=== PATIENT | male | born 1960 | race African-American/Black ===

== ENCOUNTER 2016-10-09 02:08 | Emergency (ER) | payer OTHER ==
[~2016-10-09] VITALS: Ht 172.7 cm; Wt 115.7 kg
[~2016-10-09 02:08] MED LIST: IBUPROFEN600 MG PO; NKM
[2016-10-09 02:31] VITALS: BP 127/76
[2016-10-09 02:56] LABS: APPEARANCE,URINE CLEAR; KETONES,URINE 1+ (NEGATIVE); LEUKOCYTE ESTERASE ,URINE 3+ (NEGATIVE); NITRITE,URINE NEGATIVE (NEGATIVE); PH,URINE 6 (4.5-8.0); PROTEIN,URINE 1+ (NEGATIVE); UROBILINOGEN,URINE 1 MG/DL (0.0-1.0)
[2016-10-09 02:58] LABS: BASOPHILS % (AUTO) 0.7 % (0.0-2.0); EOSINOPHILS % (AUTO) 2.6 % (0.0-3.0); LYMPHOCYTES % (AUTO) 20.5 % (20.0-45.0); MEAN CORPUSCULAR HEMOGLOBIN 32.4 PG (27.0-31.0); MEAN CORPUSCULAR VOLUME 105 FL (80-99); MEAN PLATELET VOLUME 7.7 FL (6.5-10.1); MONOCYTES % (AUTO) 6.1 % (1.0-10.0); NEUTROPHILS % (AUTO) 70.1 % (45.0-75.0); PLATELET COUNT 210 K/UL (150-450); RED BLOOD COUNT 4.19 M/UL (4.70-6.10); RED CELL DISTRIBUTION WIDTH 14.3 % (11.6-14.8); WHITE BLOOD COUNT 8.5 K/UL (4.8-10.8)
[2016-10-09 03:00] VITALS: BP 126/67
[2016-10-09 03:11] LABS: TROPONIN I < 0.30 ng/mL (<=0.30)
[2016-10-09 03:14] LABS: ALANINE AMINOTRANSFERASE 30 U/L (3-41); ALBUMIN/GLOBULIN RATIO 1.4 (1.0-2.7); ANION GAP 16 (5-15); ASPARTATE AMINO TRANSFERASE 18 U/L (5-40); CALCIUM 9.1 mg/dL (8.6-10.2); CARBON DIOXIDE 24 mEQ/L (20-30); CHLORIDE 100 mEQ/L (98-107); CREATININE 0.9 mg/dL (0.7-1.2); GLOMERULAR FILTRATION RATE > 60 mL/min (>60); HEMOLYSIS 3; LIPASE 23 U/L (< 60); POTASSIUM 3.9 mEQ/L (3.4-4.9); SODIUM 140 mEQ/L (135-145); TOTAL PROTEIN 7.2 g/dL (6.6-8.7)
[2016-10-09 03:24] LABS: CKMB < 1.5 ng/mL (< 6.7)
[2016-10-09 04:00] VITALS: BP 129/68
[2016-10-09 04:23] LABS: BACTERIA,URINE FEW /HPF; SQUAMOUS EPITHELIAL CELL,UR FEW /LPF (NONE/OCC); WBC,URINE 15-20 /HPF (0 - 0)
[2016-10-09 04:24] LABS: MUCUS,URINE MANY /LPF (NONE/OCC)
[2016-10-09] MEDS ORDERED: Norco 10mg/325mg tab ORAL ONE (04:30)
[2016-10-09] MEDS ORDERED: Cephalexin 500mg cap ORAL ONE (04:30)
[2016-10-09 04:38] VITALS: BP 126/67
[2016-10-09] MEDS ORDERED: KEFLEX500 MG ORAL (04:48)
[2016-10-09] MEDS ORDERED: COLACE100 MG ORAL (04:48)
[2016-10-09] MEDS ORDERED: PEPCID20 MG ORAL (04:48)
--- NOTE | 2016-10-09 09:13 | Diagnostic Imaging Report ---
Indication: Abdominal pain Technique: Continuous helical transaxial imaging of the abdomen and pelvis was obtained from the lung bases to the pubic symphysis. No intravenous contrast was administered. Coronal 2-D reformats were also obtained. Total Dose length Product (DLP): [address] Dose Index Volume (CTDIvol): 20 mGy Comparison: 11/15/12 Findings: Some breathing motion artifact limits evaluation as does absence of IV and oral contrast. There is no free fluid, free air or evidence of bowel obstruction. Some mural calcification noted within the distal aorta and iliac arteries. Appendix is identified and appears normal. Bilateral inguinal hernias containing fat noted. Right renal low attenuation mass is present. These are possibly cysts but incompletely assessed on the current study. Gallbladder is grossly unremarkable. There is narrowing of intervertebral discs and accompanying endplate osteophyte formation. Hypertrophied facet joints also demonstrated. Impression: No acute findings appreciated. Bilateral inguinal hernias containing fat Normal appendix Atherosclerotic vascular disease Spondylosis Probable right renal cyst. This should be confirmed by ultrasound or contrast examination. The CT scanner at [facility] is accredited by the [employer] and the scans are performed using protocols designed to limit radiation exposure to as low as reasonably achievable to attain images of sufficient resolution adequate for diagnostic evaluation.
--- NOTE | 2016-10-09 11:33 | Diagnostic Imaging Report ---
Indication: Chest Pain Comparison: None A single view chest radiograph was obtained. Findings: The heart is borderline enlarged. Lungs are clear. Bones are unremarkable. Impression: No acute disease
--- NOTE | 2016-10-10 09:36 | Emergency Room Report ---
History of Present Illness General Chief Complaint: Abdominal Pain Source: Patient, Family Member Present Illness HPI Patient just with mom for complaints of abdominal pain Patient is also mute And there is some limitation with history [place] the patient has been complaining of pain to the epigastric area She was also concerned that he appointment to his chest at one point No reports of vomiting or diarrhea Patient was apparently constipated and she has given him a laxative Patient is unable to rate his pain level Does not grimace Mom denies any obvious fevers Reports that they were told he possibly had gallstones but has not had any surgery Allergies: Coded Allergies: No Known Allergies (Unverified , 11/15/12) Patient History Limited by: medical condition Past Medical History: see triage record Pertinent Family History: none Reviewed Nursing Documentation: PMH: Agreed, PSxH: Agreed Review of Systems All Other Systems: negative except mentioned in HPI Physical Exam Vital Signs Date Time Temp Pulse Resp B/P Pulse Ox O2 Delivery O2 Flow Rate FiO2 10/09/16 02:23 98.4 106 18 127/76 95 Room Air Sp02 EP Interpretation: reviewed, normal General Appearance: well appearing, no apparent distress Head: normocephalic, atraumatic Eyes: bilateral eye EOMI, bilateral eye PERRL ENT: normal pharynx, TMs + canals normal, uvula midline Neck: full range of motion, supple, no meningismus, no bony tend Respiratory: lungs clear, normal breath sounds, no rhonchi, no respiratory distress, no retraction, no accessory muscle use Cardiovascular #1: normal peripheral pulses, regular rate, rhythm, no edema, no gallop, no JVD, no murmur Gastrointestinal: normal bowel sounds, non tender - Patient points epigastric area when asked regarding discomfort, soft, no mass, no organomegaly, non- distended, no guarding, no hernia, no pulsatile mass, no rebound Genitourinary: no CVA tenderness Musculoskeletal: normal inspection Neurologic: oriented x3, responsive, motor strength/tone normal, sensory intact Psychiatric: mood/affect normal Skin: normal color, no rash, warm/dry, palpation normal Lymphatic: normal inspection, no adenopathy Medical Decision Making Diagnostic Impression: Primary Impression: Abdominal pain Additional Impressions: chest pain UTI (urinary tract infection) ER Course Given the patient's presentation and some limited history A fairly extensive workup was initiated EKG was normal patient also had cardiac enzymes and CAT scan obtained CT was normal for any acute pathology patient has done well throughout her stay remains hemodynamically stable Does show evidence of possible UTI And will have further outpatient initial conservative trial Please note that the patient's well hernias visualized on CT, do not appear clinically, and the patient has otherwise no signs of any strangulation or herniation , Labs Test 10/09/16 02:33 10/09/16 02:40 Urine Color Yellow Urine Appearance Clear Urine pH 6 (4.5-8.0) Urine Specific [place] 1.020 (1.005-1.035) Urine Protein 1+ (NEGATIVE) Urine Glucose (UA) Negative (NEGATIVE) Urine Ketones 1+ (NEGATIVE) Urine Occult Blood 4+ (NEGATIVE) Urine Nitrite Negative (NEGATIVE) Urine Bilirubin Negative (NEGATIVE) Urine Urobilinogen 1 MG/DL (0.0-1.0) Urine Leukocyte Esterase 3+ (NEGATIVE) Urine RBC 10-15 /HPF (0 - 0) Urine WBC 15-20 /HPF (0 - 0) Urine Squamous Epithelial Cells Few /LPF (NONE/OCC) Urine Bacteria Few /HPF (NONE) Urine Mucus Many /LPF (NONE/OCC) White Blood Count 8.5 K/UL (4.8-10.8) Red Blood Count 4.19 M/UL (4.70-6.10) Hemoglobin 13.6 G/DL (14.2-18.0) Hematocrit 43.8 % (42.0-52.0) Mean Corpuscular Volume 105 FL (80-99) Mean Corpuscular Hemoglobin 32.4 PG (27.0-31.0) Mean Corpuscular Hemoglobin Concent 31.0 G/DL (32.0-36.0) Red Cell Distribution Width 14.3 % (11.6-14.8) Platelet Count 210 K/UL (150-450) Mean Platelet Volume 7.7 FL (6.5-10.1) Neutrophils (%) (Auto) 70.1 % (45.0-75.0) Lymphocytes (%) (Auto) 20.5 % (20.0-45.0) Monocytes (%) (Auto) 6.1 % (1.0-10.0) Eosinophils (%) (Auto) 2.6 % (0.0-3.0) Basophils (%) (Auto) 0.7 % (0.0-2.0) Sodium Level 140 mEQ/L (135-145) Potassium Level 3.9 mEQ/L (3.4-4.9) Chloride Level 100 mEQ/L (98-107) Carbon Dioxide Level 24 mEQ/L (20-30) Anion Gap 16 (5-15) Blood Urea Nitrogen 21 mg/dL (7-23) Creatinine 0.9 mg/dL (0.7-1.2) Estimat Glomerular Filtration Rate > 60 mL/min (>60) Glucose Level 106 mg/dL (74-106) Calcium Level 9.1 mg/dL (8.6-10.2) Total Bilirubin < 0.2 mg/dL (0.0-1.2) Aspartate Amino Transf (AST/SGOT) 18 U/L (5-40) Alanine Aminotransferase (ALT/SGPT) 30 U/L (3-41) Alkaline Phosphatase 102 U/L (40-129) Total Creatine Kinase 114 U/L (38-174) Creatine Kinase MB < 1.5 ng/mL (< 6.7) Troponin I < 0.30 ng/mL (<=0.30) Total Protein 7.2 g/dL (6.6-8.7) Albumin 4.2 g/dL (3.5-5.2) Globulin 3.0 g/dL Albumin/Globulin Ratio 1.4 (1.0-2.7) Lipase 23 U/L (< 60) EKG Diagnostic Results Rate: normal Rhythm: NSR ST Segments: no acute changes Rhythm Strip Diag. Results EP Interpretation: yes Rate: 77 Rhythm: NSR, no PVC's, no ectopy Chest X-Ray Diagnostic Results EP Interpretation: Yes Findings: no consolidation, no effusion, no pneumothorax Number of Views: 1 CT/MRI/US Diagnostic Results CT/MRI/US Diagnostic Results : Impression CT abdomen pelvisImpression: No acute findings appreciated. Bilateral inguinal hernias containing fat Normal appendix Atherosclerotic vascular disease Spondylosis Probable right renal cyst. This should be confirmed by ultrasound or contrast examination. Last Vital Signs Date Time Temp Pulse Resp B/P Pulse Ox O2 Delivery O2 Flow Rate FiO2 10/09/16 04:41 98.4 10/09/16 04:38 98 19 126/67 97 Room Air Status: improved Disposition: HOME, SELF-CARE Condition: Improved Scripts Famotidine (PEPCID) 20 Mg Tablet 20 MG ORAL DAILY, #7 TAB 0 Refills Prov: JOHN GAMBINO D.O. 10/09/16 Docusate Sodium* (COLACE*) 100 Mg Capsule 100 MG ORAL THREE TIMES A DAY, #30 CAP Prov: JOHN GAMBINO D.O. 10/09/16 Cephalexin* (KEFLEX*) 500 Mg Capsule 500 MG ORAL Q6H, #28 CAP 0 Refills Prov: JOHN GAMBINO D.O. 10/09/16 Referrals: NOT CHOSEN IPA/,REFERRING (PCP) Patient Instructions: Nonspecific Chest Pain, [id number], Abdominal Pain, Adult Additional Instructions: Patient is provided with the discharge instructions notified to follow up with primary doctor in the next 2-3 days otherwise return to the er with any worsening symptoms. JOHN GAMBINO D.O. Oct 10, 2016 09:36
--- NOTE | 2016-10-10 20:27 | Cardiology Report ---
APPROVED REPORT EKG Measurement Heart [id number] ID [id number] Normal sinus rhythm Normal ECG
== END 2016-10-09 05:15 | disposition home or self-care (01) ==
LOC: EMR 02:50
DX: R10.13 Epigastric pain (principal); R07.9 Chest pain, unspecified; K40.20 Bilateral inguinal hernia, without obstruction or gangrene, not specified as recurrent; M47.9 Spondylosis, unspecified
CPT/HCPCS: 36415; 71010; 74176; 80053; 81003; 82550; 82553; 83690; 84484; 85025; 87086; 93005; 96360; 99284; J7040

== ENCOUNTER 2020-09-19 21:02 | Emergency (ER) | payer SELFPAY ==
[~2020-09-19] VITALS: Ht 172.7 cm; Wt 95.3 kg
[~2020-09-19 21:02] MED LIST changes: +COLACE100 MG ORAL; +KEFLEX500 MG ORAL; +PEPCID20 MG ORAL
[2020-09-19 21:40] VITALS: BP 140/79
--- NOTE | 2020-09-19 21:45 | NUR ---
ED Nurse Note: Patient walked into ED accompanied by family member c/o general complaint, patient is an autistic male who does not able to verbalize however is able to follow commands, per patient's career developer who is the adopted sister, states that patient recently started to have a new onset of cough, states that patient does sleep with his mother who is admitted here in the hospital and is positive for covid 19. patient is afebrile at this time with a temp of 98.6, family member denies of patient having an elevated temp at home. Dr. David has discussed with patient's career developer and have agreed for a chest x ray. patient in no distress at this time and is sitting down. will continue to monitor
--- NOTE | 2020-09-19 22:25 | Emergency Room Report ---
History of Present Illness General Chief Complaint: General Complaint Source: Patient Present Illness HPI Disclaimer: Please note that this report is being documented using [employer] technology. This can lead to erroneous entry secondary to incorrect interpretation by the dictating instrument. HPI: 60-year-old male history of autism, nonverbal, presents with guardian for evaluation of cough. Mother tested positive for COVID-19 several days ago is currently hospitalized. Patient started coughing earlier today and was less active than usual according to principal hardware architect. No fever noted. No vomiting noted. Patient is unable to provide any history as he is nonverbal at baseline. Notes close proximity to his mother who again recently tested positive for COVID-19. Tested for COVID-19 outpatient test 2 days ago but results are not yet available. PMH: Autism, hypertension per principal hardware architect PSH: None reported by principal hardware architect Allergies: None reported by principal hardware architect Social Hx: None reported by principal hardware architect Allergies: Coded Allergies: No Known Allergies (Unverified , 11/15/12) COVID-19 Screening Contact w/high risk pt: No Experienced COVID-19 symptoms?: Yes COVID-19 Testing performed PRINCIPAL HARDWARE ARCHITECT: Yes - COVID-19 Screening: PUI COVID-19 COVID-19 Testing Source: [facility] Nursing Documentation-PMH Past Medical History: No History, Except For Review of Systems All Other Systems: limited - Unable to obtain from patient Physical Exam Vital Signs Date Time Temp Pulse Resp B/P (MAP) Pulse Ox O2 Delivery O2 Flow Rate FiO2 09/19/20 21:32 97.9 93 15 134/83 (100) 95 Room Air General: Nonverbal, no acute distress HEENT: NC/AT. EOMI. Cardiovascular: RRR. S1 and S2 normal. No murmur appreciated Resp: Normal work of breathing. No cough, wheezing or crackles appreciated Skin: Intact. No abrasions, laceration or rash over the exposed skin MSK: Normal tone and bulk. Moving all extremities. No obvious deformity. Neuro: Nonverbal. Cannot follow commands. Medical Decision Making Diagnostic Impression: Primary Impression: Suspected 2019 novel coronavirus infection ER Course 60-year-old male history of autism with recent close contact with COVID-19 positive individual presents for evaluation of decreased activity today and cough. Concern for pneumonia x-ray was obtained and shows bilateral congestion consistent with COVID-19 infection. Started on azithromycin for possible secondary pneumonia. Well-appearing otherwise with stable oxygen, heart rate and afebrile. Patient will be discharged with close follow-up. Instructed caregiver to return with new or worsening symptoms. Chest X-Ray Diagnostic Results Chest X-Ray Diagnostic Results : Chest X-Ray Ordered: Yes # of Views/Limited/Complete: 1 View Indication: Shortness of Breath EP Interpretation: Yes Interpretation: no effusion, no pneumothorax, other - Bilateral congestion Impression: Other - Bilateral vascular congestion versus atelectasis versus infiltrate Electronically Signed by: Electronically signed by Dr. Milind David MD Last Vital Signs Date Time Temp Pulse Resp B/P (MAP) Pulse Ox O2 Delivery O2 Flow Rate FiO2 09/19/20 21:32 97.9 93 15 134/83 (100) 95 Room Air Disposition: HOME, SELF-CARE Condition: Stable Scripts Azithromycin* (ZITHROMAX*) 250 Mg Tablet 250 MG ORAL DAILY, #6 TAB 0 Refills Take two tables once daily for 1 day, then one tablet once daily for 4 days. Prov: Milind David MD 09/19/20 Referrals: NOT CHOSEN IPA/,REFERRING (PCP) Milind David MD Sep 19, 2020 22:25
[2020-09-19] MEDS ORDERED: ZITHROMAX250 MG ORAL (22:31)
[2020-09-19 22:35] VITALS: BP 135/72
--- NOTE | 2020-09-19 22:35 | NUR ---
ER DISCHARGE NOTE: Patient is cleared to be discharged per ERMD, pt is aox4, on room air, with stable vital signs. pt was given dc and prescription instructions, pt was able to verbalize understanding, pt id band removed without complications. pt is able to ambulate with steady gait. pt took all belongings.
--- NOTE | 2020-09-20 14:59 | Diagnostic Imaging Report ---
Indication: Cough Technique: One view of the chest Comparison: 10/09/2016 Findings: Body habitus limits evaluation. The heart is enlarged. There is equivocal mild interstitial prominence at the lung bases. Impression: Cardiac megaly Equivocal mild interstitial congestion. Correlate with clinical findings
== END 2020-09-19 22:35 | disposition home or self-care (01) ==
LOC: EMR 22:05
DX: R05 Cough (principal); Z20.828 Contact with and (suspected) exposure to other viral communicable diseases; F84.0 Autistic disorder
CPT/HCPCS: 71045; 99283